=== PATIENT | female | born 1990 | race Caucasian/White ===

== ENCOUNTER 2018-06-03 07:01 | Emergency (ER) | payer BC, OTHER ==
[~2018-06-03] VITALS: Ht 162.6 cm; Wt 111.2 kg
[~2018-06-03 07:01] MED LIST: NO CURRENT MEDS; [UNRECOGNIZED DRUG - OTHER]
[2018-06-03 07:04] VITALS: Ht 162.6 cm; Wt 111.2 kg
[2018-06-03] MEDS ORDERED: IBUPROFEN 800 MG TAB PO ONE (08:30)
[2018-06-03] MEDS ORDERED: IBUP-1542 PO (08:45)
--- NOTE | 2018-06-03 08:46 | ERD ---
ER Documentation Chief Complaint Chief Complaint abd pain , nausea , constipation , cough , chest congestion x few days HPI Patient is a 27-year-old female with no medical problems who presents with chest pain. The patient was brought in by ambulance. She said "I got paranoid because I recently got an implanted control and I thought it might be causing my symptoms". She said that she got her implantable control in her left arm on Sunday morning. Since then she has not been sleeping well and had chest pain. She also said that she was having "the flu". He said that last night her symptoms were worse. She is under a lot of stress recently and feels this could be anxiety as well. Upon review of old medical records this is the patient's fifth visit to the ER since 2008. The patient does not know the name of the primary doctor. ROS All systems reviewed and are negative except as per history of present illness. Medications Home Meds Active Scripts Ibuprofen* (Motrin*) 600 Mg Tab, 600 MG PO Q6H PRN for PAIN AND OR ELEVATED TEMP, #30 TAB Prov:TALIA JAY MD 06/03/18 Reported Medications [Ulcer Meds] No Conflict Check 10/15/11 [No Current Meds] No Conflict Check 08/06/09 Allergies Allergies: Coded Allergies: No Known Drug Allergies (Verified Allergy, Mild, 08/06/09) PMhx/Soc Medical and Surgical Hx: pt denies Medical Hx, pt denies Surgical Hx History of Surgery: No Anesthesia Reaction: No Hx Neurological Disorder: No Hx Respiratory Disorders: No Hx Cardiac Disorders: No Hx Psychiatric Problems: Yes (ANXIETY) Hx Miscellaneous Medical Probl: No Hx Alcohol Use: Yes (1-2/WK) Hx Substance Use: Yes (MARIJUANA) Hx Tobacco Use: Yes Smoking Status: Light tobacco smoker FmHx Family History: diabetes Physical Exam Vitals Vital Signs Date Temp Pulse Resp B/P (MAP) Pulse Ox O2 O2 Flow FiO2 Time Delivery Rate 06/03/18 98.4 71 16 102/83 100 Room Air 08:59 (89) 06/03/18 98.1 79 18 132/82 99 07:04 (99) Physical Exam Const: No acute distress Head: Atraumatic Eyes: Normal Conjunctiva ENT: Normal External Ears, Nose and Mouth. Neck: Full range of motion. No meningismus. Resp: Clear to auscultation bilaterally Cardio: Regular rate and rhythm, no murmurs Abd: Soft, non tender, non distended. Normal bowel sounds Skin: No petechiae or rashes Back: No midline or flank tenderness Ext: No cyanosis, or edema Neur: Awake and alert Psych: Normal Mood and Affect Results 24 hrs Laboratory Tests Test 06/03/18 08:16 06/03/18 08:18 Bedside Urine pH (LAB) 6.0 Bedside Urine Protein (LAB) Trace Bedside Urine Glucose (UA) Negative Bedside Urine Ketones (LAB) 1+ Bedside Urine Blood Trace-lysed Bedside Urine Nitrite (LAB) Negative Bedside Urine Leukocyte Esterase (L Trace POC Beta HCG, Qualitative NEGATIVE Current Medications Medications Dose Sig/Ashwin Start Time Status Last (Trade) Ordered Route PRN Stop Time Admin Dose Reason Admin Ibuprofen 800 mg ONCE ONCE 06/03/18 DC 06/03/18 (Motrin) PO 08:30 06/03/18 08:47 08:31 Procedures/MDM EKG read by me: Rate/Rhythm: Regular rate and rhythm at a rate of 83 Intervals: Normal Impression: No evidence of ischemia or arrhythmia Chest x-ray negative per radiology. Smoking Cessation Therapy: Pt. was lectured for greater than 3 minutes on the health risks of continued smoking and the benefits of cessation. Patient is a 27-year-old female who presents with chest pain. EKG and chest x- ray are negative. Patency test is negative and urine dip shows no sign of infection. I believe outpatient management is appropriate but the patient will need close follow-up with her primary doctor. She can take ibuprofen as needed for symptoms. I believe most of her symptoms are related to anxiety. I doubt acute coronary syndrome, pneumonia, pneumothorax, pulmonary prism, or aortic dissection. Departure Diagnosis: Primary Impression: Chest pain Chest pain type: unspecified Qualified Codes: R07.9 - Chest pain, unspecified Condition: Fair Patient Instructions: Chest Pain, Uncertain Cause Referrals: Your doctor Additional Instructions: Call your primary care doctor TOMORROW for an appointment during the next 1 WEEK.Tell the hospital secretary that you were referred from this facility.See the doctor sooner or return here if your condition worsens before your appointment time. TALIA JAY MD Jun 03, 2018 08:46
[2018-06-03 08:59] VITALS: BP 102/83; PULSE 71; RESP 16
== END 2018-06-03 08:59 | disposition home or self-care (01) ==
LOC: E/R 07:01
DX: R07.9 Chest pain, unspecified (principal); Z87.891 Personal history of nicotine dependence
CPT/HCPCS: 71045; 81003; 81025; 93005; Z7502; Z7610

== ENCOUNTER 2018-06-08 16:53 | Emergency (ER) | payer OTHER ==
[~2018-06-08] VITALS: Wt 112.0 kg
[~2018-06-08 16:53] MED LIST changes: +IBUP-1542 PO
[2018-06-08 16:55] VITALS: BP 138/78; PULSE 78; RESP 18
[2018-06-08] MEDS ORDERED: IBUP-1542 PO (17:30)
[2018-06-08] MEDS ORDERED: AZIT250T PO (17:30)
[2018-06-08] MEDS ORDERED: D-ME473S2 PO (17:30)
--- NOTE | 2018-06-08 17:33 | ERD ---
ER Documentation Chief Complaint Chief Complaint SORE THROAT HPI 27-year-old female presents with one-week history of sore throat and intermittent fevers. She has mild cough and she also has nasal congestion. She has vomiting, abdominal pain, chest pain, additional symptoms. ROS All systems reviewed and are negative except as per history of present illness. Medications Home Meds Active Scripts Dextromethorphan Hb-Promethazine Hcl* (Promethazine DM* Syrup) 473 Ml Syrup, 5 ML PO Q6 PRN for COUGH for 5 Days, ML Prov:LINDA DOBSON MD 06/08/18 Ibuprofen* (Motrin*) 600 Mg Tab, 600 MG PO Q6, #20 TAB Prov:LINDA DOBSON MD 06/08/18 Azithromycin* (Zithromax*) 250 Mg Tablet, 250 MG PO .ZPACK DIRECTED, #6 TAB TAKE 500 MG (2 TABS) THE FIRST DAY THEN 250 MG (1 TAB) DAYS 2-5 Prov:LINDA DOBSON MD 06/08/18 Ibuprofen* (Motrin*) 600 Mg Tab, 600 MG PO Q6H PRN for PAIN AND OR ELEVATED TEMP, #30 TAB Prov:TALIA JAY MD 06/03/18 Reported Medications [Ulcer Meds] No Conflict Check 10/15/11 [No Current Meds] No Conflict Check 08/06/09 Allergies Allergies: Coded Allergies: No Known Drug Allergies (Verified Allergy, Mild, 08/06/09) PMhx/Soc History of Surgery: No Anesthesia Reaction: No Hx Neurological Disorder: No Hx Respiratory Disorders: No Hx Cardiac Disorders: No Hx Psychiatric Problems: Yes (ANXIETY) Hx Miscellaneous Medical Probl: No Hx Alcohol Use: Yes (1-2/WK) Hx Substance Use: Yes (MARIJUANA) Hx Tobacco Use: Yes Smoking Status: Current every day smoker FmHx Family History: No diabetes, No coronary disease, No other Physical Exam Vitals Vital Signs Date Temp Pulse Resp B/P (MAP) Pulse Ox O2 O2 Flow FiO2 Time Delivery Rate 06/08/18 98.5 78 18 138/78 99 16:55 (98) Physical Exam Const: No acute distress Head: Atraumatic Eyes: Normal Conjunctiva ENT: Normal External Ears, Nose and Mouth. TMs normal. 2+ nasal congestion. Tonsils 3+ with erythema. No exudate. Uvula midline. Tender anterior cervical lymph nodes. Neck: Full range of motion. No meningismus. Resp: Clear to auscultation bilaterally Cardio: Regular rate and rhythm, no murmurs Abd: Soft, non tender, non distended. Normal bowel sounds Skin: No petechiae or rashes Back: No midline or flank tenderness Ext: No cyanosis, or edema Neur: Awake and alert Psych: Normal Mood and Affect Procedures/MDM She presents with worsening URI symptoms for last week. She signs of pharyngitis. Given duration of symptoms and patient request viral versus bacterial counseling she will treated empirically with Zithromax, meclizine, ibuprofen, primary care follow-up, the patient was stable with no new complaints during the ER course. Clinically, there is no current evidence to suggest meningitis, sepsis, acute abdomen, pneumonia, stroke, acute coronary syndrome, pulmonary embolism, aortic dissection or any other emergent condition appearing to require further evaluation or hospitalization. Patient counseled regarding my diagnostic impression and care plan. Prior to discharge all questions answered. Pt agrees with treatment plan and understands strict return precautions. Pt is instructed to follow up with primary care provider within 24- 48 hours. Precautionary instructions provided including instructions to return to the ER if not improving or for any worsening or changing symptoms or concerns. Departure Diagnosis: Primary Impression: Sore throat Condition: Stable Patient Instructions: Bronchitis, Antiobiotic Treatment (Adult) Referrals: DOCTOR,NOT ON STAFF (PCP) Additional Instructions: Recheck for new or worsening symptoms with primary care doctor. LINDA DOBSON MD Jun 08, 2018 17:33
== END 2018-06-08 18:02 | disposition home or self-care (01) ==
LOC: FTE 16:53
DX: J02.9 Acute pharyngitis, unspecified (principal); F17.210 Nicotine dependence, cigarettes, uncomplicated
CPT/HCPCS: 99283